=== PATIENT | female | born 1980 | race American Indian/Alaskan Native ===

== ENCOUNTER 2016-08-26 11:54 | Emergency (ER) | payer SELFPAY ==
--- NOTE | 2016-08-26 12:42 | Emergency Department Report ---
Chief Complaint: Arrhythmia/Palpitations Stated Complaint: HEART PALPITATIONS/PANIC ATTACKS Time Seen by Provider: 08/26/16 12:37 - HPI History of Present Illness: 36-year-old female with a past medical history of bipolar she reports she has been off her medicines for a while which is now triggered her anxiety which is now triggered her palpitations. Patient comes in complaint of heart feels like it's racing. Patient admits she has not been sleeping and days. Patient denies any homicidal suicidal ideation. She is not quite sure what medications she was supposed to be on she thinks Klonopin. Her doctor is Dr. Grimm . - Exam Vital Signs: Vital Signs 08/26/16 12:06 Temperature 98.4 F Pulse Rate 89 Respiratory 16 Rate Blood Pressure 132/96 O2 Sat by Pulse 100 Oximetry Physical Exam: Patient's alert. Very tangent speech, reports that the demons have been bothering her that's why she's having diarrhea. Cardiovascular S1-S2 regular rate and rhythm respiratory she's clear to auscultation bilateral MSE screening note: Focused history and physical exam performed. Due to findings the following was ordered: Triage mental health protocol set in place patient be evaluated in the main ER ED Disposition for MSE Condition: Stable
[2016-08-26 13:08] LABS: Basophils % (Auto) 1.8 % (0.0-1.8); Eosinophils % (Auto) 0.1 % (0.0-4.3); Hematocrit 37.1 % (30.3-42.9); Hemoglobin 11.6 gm/dl (10.1-14.3); Mean Corpuscular HGB Conc 31 % (30-34); Platelet Count 441 K/mm3 (140-440); Red Blood Count 5.65 M/mm3 (3.65-5.03); White Blood Count 4.7 K/mm3 (4.5-11.0)
[2016-08-26 13:09] LABS: Mean Corpuscular Hemoglobin 21 pg (28-32); Mean Corpuscular Volume 66 fl (79-97)
[2016-08-26 13:18] LABS: Blood Urea Nitrogen 10 mg/dL (7-17); Calcium 9.6 mg/dL (8.4-10.2); Carbon Dioxide 24 mmol/L (22-30); Chloride 99.6 mmol/L (98-107); Glucose 100 mg/dL (65-100); Potassium 4.4 mmol/L (3.6-5.0); Sodium 138 mmol/L (137-145)
[2016-08-26 13:27] LABS: Anion Gap 19 mmol/L
--- NOTE | 2016-08-26 23:12 | Emergency Department Report ---
HPI - General Chief Complaint: Arrhythmia/Palpitations Time Seen by Provider: 08/26/16 12:37 - HPI HPI: This is a 36-year-old Afro-[place] female who presents to the emergency department with complaint of diarrhea, palpitations, anxiety and/or panic attacks. Patient says that the diarrhea has been going on for the past 3 days and is mostly like loose stools. The past 2 days she's been having some palpitations as if her heart is racing. She also feels anxious and panicky due to her impending moved from [place] to [place]. Patient says she has history of bipolar disorder and anxiety. She used to be on Klonopin but she does not have any current physician secondary to moving here. She denies any shortness of breath, nausea, vomiting, chest pain, fever, vaginal bleeding, discharge, dysuria. She has not taken anything for symptoms prior to presentation. No sick contacts at home. He denies any tobacco or illicit drug use or abuse. ED Past Medical Hx - Medications Home Medications: Home Medications Medication Instructions Recorded Confirmed Last Taken Type ALPRAZolam [Xanax TAB] 0.5 mg PO BID PRN #8 tab 08/27/16 Unknown Rx HYDROcodone/APAP 10-325 [[place] 1 each PO QID 08/27/16 08/27/16 Unknown History 10/325] Metoprolol [Lopressor] 25 mg PO BID 08/27/16 08/27/16 Unknown History cloNIDine [Catapres] 2 mg PO TID 08/27/16 08/27/16 Unknown History ED Review of Systems ROS: Stated complaint: HEART PALPITATIONS/PANIC ATTACKS Other details as noted in HPI Comment: All other systems reviewed and negative Constitutional: denies: chills, fever Eyes: denies: eye pain, eye discharge, vision change ENT: denies: ear pain, throat pain Respiratory: denies: cough, shortness of breath, wheezing Cardiovascular: palpitations. denies: chest pain Gastrointestinal: diarrhea. denies: abdominal pain, nausea, vomiting Genitourinary: denies: urgency, dysuria, discharge Musculoskeletal: denies: back pain, joint swelling, arthralgia Skin: denies: rash, lesions Neurological: denies: headache, weakness, paresthesias Physical Exam - Physical Exam Vital Signs: Vital Signs 08/26/16 12:06 Temperature 98.4 F Pulse Rate 89 Respiratory 16 Rate Blood Pressure 132/96 O2 Sat by Pulse 100 Oximetry Physical Exam: GENERAL: The patient is well-developed well-nourished. Patient does not appear in any acute distress. HEENT: Normocephalic. Atraumatic. Extraocular motions are intact. Patient has moist mucous membranes. Pupils equal reactive to light bilaterally. NECK: Supple. Trachea is midline. CHEST/LUNGS: Clear to auscultation. There is no respiratory distress noted. HEART/CARDIOVASCULAR: Regular. There is no tachycardia. There is no gallop rub or murmur. ABDOMEN: Abdomen is soft, nontender. Patient has normal bowel sounds. There is no abdominal distention. SKIN: There is no rash. There is no edema. There is no diaphoresis. NEURO: The patient is awake, alert, and oriented. The patient is cooperative. The patient has no focal neurologic deficits. The patient has normal speech. MUSCULOSKELETAL: There is no tenderness or deformity. There is no limitation range of motion. There is no evidence of acute injury. ED Course Vital Signs 08/26/16 12:06 Temperature 98.4 F Pulse Rate 89 Respiratory 16 Rate Blood Pressure 132/96 O2 Sat by Pulse 100 Oximetry ED Medical Decision Making - Lab Data Result diagrams: 08/26/16 12:55 08/26/16 12:55 - EKG Data -: EKG Interpreted by Id EKG shows normal: sinus rhythm, axis, intervals, QRS complexes, ST-T waves Rate: normal - EKG Data When compared to previous EKG there are: previous EKG unavailable Interpretation: normal EKG - Radiology Data Radiology results: image reviewed interpreted by me: Chest x-ray did not show any acute process. Heart is normal shape and size. No effusions. No pneumothorax. No signs of pneumonia seen. - Medical Decision Making This is a 36-year-old female presents to the emergency department with a few days of diarrhea, as well as some anxiety and palpitations. Since the patient has been in the emergency department she does not appear to be in any distress and slightly does not appear to be having any panic attacks. Patient's labs do not show any signs of infection, electrolyte abnormalities, renal insufficiency her glucose and her maladies. There is no thyroid dysfunction. Patient is not and there is no urinary tract infection. Urine drug screen is a presumptive positive for benzodiazepine's. Patient's vital signs were stable throughout her ED course. EKG does not show any signs of ST elevation [place], ischemia or dysrhythmia. Patient will be discharged home with a small amount of Xanax for when she truly has uncontrolled anxiety or panic attacks. She has been given referrals for primary care and cardiology to follow up regarding her palpitations and to establish care. She has been given a referral for the [facility] to follow-up regarding her anxiety and/or panic attacks. She will return to the ER with any worsening of her symptoms or any acute distress. - Differential Diagnosis anxiety, panic attack, hyperthyroidism, substance abuse Critical Care Time: No Critical care attestation.: If time is entered above; I have spent that time in minutes in the direct care of this critically ill patient, excluding procedure time. ED Disposition Clinical Impression: Palpitations, Anxiety Disposition: DISCHARGED TO HOME OR SELFCARE Is pt being admited?: No Does the pt Need Aspirin: No Condition: Stable Instructions: Palpitations (ED), Anxiety (ED) Additional Instructions: Please follow-up with the referrals you've been given. I've given you referrals for primary care, cardiology, and the [facility]. The primary care doctor is to oversee all of your concerns as well as for a yearly physical. The dough cutting machine operator is to follow-up regarding or palpitations. The [facility] can assist you with your anxiety. I prescribed you a small amount of anti-anxiety medication. You' ve been prescribed a medication that is sedating. Therefore this medication cannot be mixed with alcohol, or taken prior to driving, working, or being responsible for children. Prescriptions: ALPRAZolam [Xanax TAB] 0.5 mg PO BID PRN #8 tab PRN Reason: Anxiety Referrals: PRIMARY MD VISHAL [Primary Care Provider] - 3-5 Days JULIAN MIKE MD [Staff Physician] - 3-5 Days [facility] [Outside] - 3-5 Days [facility] [Outside] - 3-5 Days Time of Disposition: 02:33
[2016-08-27 01:29] LABS: Urine Drugs of Abuse Note Disclamer
[2016-08-27 01:56] LABS: Bilirubin,Urine NEG (Negative); Blood,Urine NEG (Negative); Ketones,Urine TR mg/dL (Negative); Leukocyte Esterase,Urine TR (Negative); Mucus,Urine 3+ /HPF; Nitrite,Urine NEG (Negative); Protein,Urine <15 mg/dL mg/dL (Negative)
[2016-08-27 03:26] VITALS: BP 128/74
--- NOTE | 2016-08-27 07:49 | XRay Report ---
ROUTINE CHEST, TWO VIEWS: HISTORY: Palpitations. The trachea, heart, mediastinal contour, lung schulz and bony thorax are unremarkable. IMPRESSION: Unremarkable chest x-ray.
== END 2016-08-27 03:23 | disposition home or self-care (01) ==
LOC: ED 11:54
DX: R00.2 Palpitations (principal); F41.9 Anxiety disorder, unspecified
CPT/HCPCS: 36415; 71020; 80048; 80307; 81001; 81025; 84443; 85025; 93005; 93010; 99284; G0480; 80320